=== PATIENT | female | born 1980 | race Asian ===

== ENCOUNTER 2017-08-30 10:00 | Inpatient (IN) | payer SELFPAY ==
[~2017-08-30] VITALS: Ht 164 cm; Wt 69.9 kg
[2017-08-30] MEDS ORDERED: LR 1,000 ML IV ONE (10:50)
[2017-08-30] MEDS ORDERED: CEFAZOLIN 2 GM IVPB PREMIX 50 ML IV ONE (11:00)
[2017-08-30 11:13] VITALS: BP_SYST 109
[2017-08-30 11:24] LABS: BASOPHILS # (AUTO) 0.1 K/uL (0.0-0.2); BASOPHILS % (AUTO) 0.7 % (0.0-2.0); EOSINOPHILS % (AUTO) 0.6 % (0.0-4.0); HEMATOCRIT 35.3 % (36-48); HEMOGLOBIN 11.9 g/dL (12.0-16.0); LYMPHOCYTES # (AUTO) 1.8 K/uL (1.0-5.5); LYMPHOCYTES % (AUTO) 22.9 % (20.5-51.5); MEAN CORPUSCULAR HEMOGLOBIN 32 pg (27-31); MEAN CORPUSCULAR HGB CONC 34 % (32-36); MEAN CORPUSCULAR VOLUME 95 fL (79.0-98.0); MONOCYTES # (AUTO) 0.5 K/uL (0.0-1.0); MONOCYTES % (AUTO) 6.3 % (1.7-9.3); NEUTROPHILS # (AUTO) 5.3 K/uL (1.8-7.7); NEUTROPHILS % (AUTO) 69.5 % (40.0-70.0); PLATELET COUNT (AUTO) 163 K/uL (130-430); RED BLOOD CELL COUNT(AUTO) 3.72 MIL/uL (4.2-6.2); RED CELL DISTRIBUTION WIDTH 14.1 % (9.0-15.0); WHITE BLOOD COUNT (AUTO) 7.7 K/uL (4.8-10.8)
[2017-08-30] MEDS ORDERED: OXYTOCIN/NORMAL SALINE 1,000 ML IV ONE (11:51)
[2017-08-30] MEDS ORDERED: MORPHINE SULFATE 10MG/10ML PF AMP EP ONE (12:00)
[2017-08-30] MEDS ORDERED: fentaNYL CITRATE/PF 100 MCG/2 ML AMP IVP ONE (12:00)
[2017-08-30] MEDS ORDERED: ONDANSETRON HCL 4 MG/2 ML VIAL IVP ONE ×2 (12:00→13:15)
[2017-08-30] MEDS ORDERED: MEPERIDINE HCL/PF 100 MG/ML AMP IM ONE (12:00)
[2017-08-30] MEDS ORDERED: NS IRRIG SOLN 1000 ML IR ONE (12:00)
[2017-08-30] MEDS ORDERED: CEFAZOLIN 1 GM IVPB PREMIX 50 ML IV SCH (12:00)
[2017-08-30] MEDS ORDERED: LANOLIN 7 GM OINT. TP PRN (12:00)
[2017-08-30] MEDS ORDERED: HYDROcodone/ACETAMIN 5-325 MG TAB (NORCO/ VICODIN) PO PRN (12:00)
[2017-08-30] MEDS ORDERED: OXYTOCIN 10 UNIT/ML VIAL IV ONE (12:00)
[2017-08-30] MEDS ORDERED: MEASLES,MUMPS&RUBELLA VACC/PF 12500 UNIT/0.5 ML VIAL SUBQ PRN (12:00)
[2017-08-30] MEDS ORDERED: OXYCODONE/ACETAMINOPHEN 5-325 TABLET PO PRN ×2 (12:00)
[2017-08-30] MEDS ORDERED: ANUSOL 1 EA SUPP.RECT (PREPARATION H) RC PRN (12:00)
[2017-08-30] MEDS ORDERED: BUPIVACAINE /DEX PF 0.75% SPINAL 2 ML AMP INJ ONE (12:00)
[2017-08-30] MEDS ORDERED: LR 1,000 ML IV.SOLN IV ONE (12:00)
[2017-08-30 13:15] VITALS: BP_SYST 109
[2017-08-30] MEDS ORDERED: MEPERIDINE HCL/PF 25 MG/ML DISP.SYRIN IVP PRN (13:15)
[2017-08-30] MEDS ORDERED: KETOROLAC TROMETHAMINE 30 MG VIAL IVP ONE (13:15)
[2017-08-30] MEDS ORDERED: MIDAZOLAM HCL 5 MG/5 ML VIAL IVP PRN (13:15)
[2017-08-30] MEDS ORDERED: NALOXONE HCL 0.4 MG/ML AMP (NARCAN) IVP ONE (13:15)
[2017-08-30] MEDS ORDERED: HYDROmorphone 1 MG INJ. 1 MG/ML AMPUL IVP PRN (13:15)
[2017-08-30] MEDS ORDERED: fentaNYL CITRATE/PF 100 MCG/2 ML AMP IVP PRN (13:15)
[2017-08-30] MEDS: CEFAZOLIN 1 GM IVPB PREMIX 50 ML IV SCH (18:23)
[2017-08-30] MEDS ORDERED: TEMAZEPAM 15 MG CAPSULE PO PRN (21:00)
[2017-08-31] MEDS ORDERED: CEFAZOLIN 1 GM IVPB PREMIX 100 ML IV ONE (00:08)
[2017-08-31] MEDS: CEFAZOLIN 1 GM IVPB PREMIX 50 ML IV SCH ×2 (00:18→05:50)
[2017-08-31] MEDS: IBUPROFEN 600 MG TABLET PO SCH ×4 (05:49→23:34)
[2017-08-31 07:30] LABS: BASOPHILS % (AUTO) 0.1 % (0.0-2.0); EOSINOPHILS % (AUTO) 0.2 % (0.0-4.0); HEMATOCRIT 31.9 % (36-48); HEMOGLOBIN 10.7 g/dL (12.0-16.0); LYMPHOCYTES # (AUTO) 1.2 K/uL (1.0-5.5); LYMPHOCYTES % (AUTO) 12.1 % (20.5-51.5); MEAN CORPUSCULAR HEMOGLOBIN 32 pg (27-31); MEAN CORPUSCULAR HGB CONC 33 % (32-36); MEAN CORPUSCULAR VOLUME 96 fL (79.0-98.0); MONOCYTES # (AUTO) 0.2 K/uL (0.0-1.0); MONOCYTES % (AUTO) 2.1 % (1.7-9.3); NEUTROPHILS # (AUTO) 8.8 K/uL (1.8-7.7); NEUTROPHILS % (AUTO) 85.5 % (40.0-70.0); PLATELET COUNT (AUTO) 122 K/uL (130-430); RED BLOOD CELL COUNT(AUTO) 3.33 MIL/uL (4.2-6.2); RED CELL DISTRIBUTION WIDTH 14.6 % (9.0-15.0); WHITE BLOOD COUNT (AUTO) 10.2 K/uL (4.8-10.8)
[2017-08-31] MEDS: SIMETHICONE 80 MG TAB.CHEW PO PRN ×3 (11:54→23:34)
[2017-08-31] MEDS: DOCUSATE SODIUM 100 MG CAPSULE PO PRN (23:34)
[2017-09-01] MEDS: IBUPROFEN 600 MG TABLET PO SCH ×2 (05:08→13:21)
[2017-09-01] MEDS: DOCUSATE SODIUM 100 MG CAPSULE PO PRN (13:20)
[2017-09-01] MEDS: SIMETHICONE 80 MG TAB.CHEW PO PRN (13:20)
== END 2017-09-01 14:35 | disposition home or self-care (01) | DRG 766 ==
LOC: SPU 10:00
PROVIDERS: ADMIT Obstetrics & Gynecology; ATTEND Obstetrics & Gynecology
PROC: 10D00Z1 Extraction of Products of Conception, Low, Open Approach (ICD-10-PCS; principal; 2017-08-31)
DX: O34.211 Maternal care for low transverse scar from previous cesarean delivery (principal); Z37.0 Single live birth; Z3A.39 39 weeks gestation of pregnancy
CPT/HCPCS: 36415; 85025; 86886; 86900; 86901; 94760; J0690; J2175; J2274; J2405; J2590; J3010; J3490; J7120